=== PATIENT | female | born 1980 | race Caucasian/White ===

== ENCOUNTER 2021-09-19 11:23 | Emergency (ER) | payer BC ==
[~2021-09-19] VITALS: Ht 160 cm; Wt 72.6 kg
[~2021-09-19 11:23] MED LIST: CIPRO500 MG PO; IOPHEN DM-100 MG/5 M PO; KETO10TA2 PO; ORPH100T PO; OSEL75CA PO; PEPCID40 MG PO; SMZ-TMP DS 800-1 TAB PO; TUSICOF LIQUID120 ML PO; ZANTAC300 MG PO
[2021-09-19] MEDS ORDERED: KETO10TA2 PO (16:07)
== END 2021-09-19 16:25 ==
LOC: ER 11:23
DX: N83.202 Unspecified ovarian cyst, left side (principal); N83.291 Other ovarian cyst, right side